=== PATIENT | female | born 1945 | race Caucasian/White ===

== ENCOUNTER 2017-06-09 11:28 | Emergency (ER) | payer OTHER ==
[~2017-06-09] VITALS: Ht 157.5 cm; Wt 72.7 kg
[2017-06-09] MEDS ORDERED: LISI-660 PO (11:31)
[2017-06-09] MEDS ORDERED: PERTUSS(ACELL),DIPH,TET VAC/PF 0.5 ML VIAL IM ONE (12:15)
[2017-06-09 12:41] LABS: PROTHROMBIN TIME 10.5 SEC (9.4-11.6)
[2017-06-09 12:45] VITALS: BP 156/82
[2017-06-09] MEDS ORDERED: ATOR40TA28 PO (13:11)
[2017-06-09] MEDS ORDERED: SITA100 PO (13:11)
[2017-06-09] MEDS ORDERED: PIOG45TA PO (13:11)
[2017-06-09] MEDS ORDERED: OMEP20 PO (13:11)
[2017-06-09] MEDS ORDERED: ASPI81 PO (13:12)
[2017-06-09] MEDS ORDERED: OFLO35OS OP (13:12)
[2017-06-09] MEDS ORDERED: FISH1CAP27 PO (13:12)
[2017-06-09] MEDS ORDERED: LORA10TA7 PO (13:12)
[2017-06-09] MEDS ORDERED: ALEN70TA48 PO (13:12)
[2017-06-09] MEDS ORDERED: IPRA4AER IH (13:12)
[2017-06-09] MEDS ORDERED: FLUT16H NASAL (13:12)
[2017-06-09] MEDS ORDERED: VITAD1000 PO (13:12)
== END 2017-06-09 13:25 | disposition short-term general hospital (02) ==
LOC: EMS 11:29
DX: S06.6X0A Traumatic subarachnoid hemorrhage without loss of consciousness, initial encounter (principal); I10 Essential (primary) hypertension; E78.00 Pure hypercholesterolemia, unspecified; Z79.899 Other long term (current) drug therapy; W18.39XA Other fall on same level, initial encounter; Y93.89 Activity, other specified; Y92.89 Other specified places as the place of occurrence of the external cause; Y99.8 Other external cause status
CPT/HCPCS: 70450; 90471; 90715; 99285